=== PATIENT | female | born 1950 | race Caucasian/White ===

== ENCOUNTER → 2016-12-31 | Outpatient (CLI) | payer MEDICARE, OTHER | LOC: MC.RAD 10:00 | DX: Z12.31 Encounter for screening mammogram for malignant neoplasm of breast (principal) ==

== ENCOUNTER 2017-06-13 14:38 | Emergency (ER) | payer MEDICARE, OTHER ==
[~2017-06-13] VITALS: Ht 177.8 cm; Wt 90.5 kg
[2017-06-13] MEDS ORDERED: NORCO 325 MG-51 TAB PO (16:26)
[2017-06-13 18:30] VITALS: BP 190/82; PULSE 58
== END 2017-06-13 19:15 | disposition home or self-care (01) ==
LOC: COL.ER 14:38
DX: S53.124A Posterior dislocation of right ulnohumeral joint, initial encounter (principal); W18.30XA Fall on same level, unspecified, initial encounter
CPT/HCPCS: J1170; J2405; J2550; J2704; J7030

== ENCOUNTER → 2018-03-10 | Outpatient (CLI) | payer MEDICARE, OTHER ==
[~2018-03-10] MED LIST: NORCO 325 MG-51 TAB PO
== END ==
LOC: MC.RAD 08:13
DX: Z12.31 Encounter for screening mammogram for malignant neoplasm of breast (principal)

== ENCOUNTER → 2019-04-27 | Outpatient (CLI) | payer MEDICARE, OTHER | LOC: MC.RAD 11:00 | DX: Z12.31 Encounter for screening mammogram for malignant neoplasm of breast (principal) ==

== ENCOUNTER → 2020-05-17 | Outpatient (CLI) | payer MEDICARE, OTHER | LOC: MC.RAD 11:39 | DX: Z12.31 Encounter for screening mammogram for malignant neoplasm of breast (principal) ==

== ENCOUNTER → 2021-07-09 | Outpatient (CLI) | payer MEDICARE, OTHER | LOC: MC.RAD 13:30 | DX: Z12.31 Encounter for screening mammogram for malignant neoplasm of breast (principal) ==